=== PATIENT | male | born 1990 | race Two or more races ===

== ENCOUNTER 2022-07-02 21:47 | Emergency (ER) | payer MEDICAID, OTHER ==
[~2022-07-02] VITALS: Ht 180.3 cm; Wt 68.2 kg
[2022-07-02 22:33] VITALS: BP 122/89
== END 2022-07-03 04:15 | disposition left against medical advice (07) ==
LOC: ER 21:53
DX: S61.215A Laceration without foreign body of left ring finger without damage to nail, initial encounter (principal); Z53.21 Procedure and treatment not carried out due to patient leaving prior to being seen by health care provider; W22.8XXA Striking against or struck by other objects, initial encounter; Y93.89 Activity, other specified; Y92.89 Other specified places as the place of occurrence of the external cause; Y99.8 Other external cause status